=== PATIENT | female | born 1965 | race Caucasian/White ===

== ENCOUNTER → 2020-02-15 07:59 | Outpatient (CLI) | payer OTHER, SELFPAY ==
--- NOTE | 2020-02-15 | DI.ECHO.S_ITS ---
[facility]---------+ [facility] +---------+ : : [address] : [address] [address] : : : : [id number] : : : : Phone: [phone]+ Echocardiogram Report + + :Name: JUAN ZACARIAS Study Date: 02/15/2020 Height: 68 in : :[facility] Weight: 212 lb : : Gender: Female BSA: 2.1 m2 : :: 1965 Age: 54 yrs BP: 110/80 mmHg: :Reason For Study: AFIB : :Ordering Physician: Shaji Alvares : :Dai Performed By: Denisa Alejo : :Referring: SHAJI LALA : + + Interpretation Summary 1) Normal left ventricular thickness, size, wall motion, and systolic function (EF 60-65%). 2) Upper normal right ventricular size with normal function. 3) No significant valvular abnormalities. 4) No prior Echo available for comparison. Procedure: A two-dimensional transthoracic echocardiogram with color flow and Doppler was performed. The study quality was technically adequate. There is no prior echocardiogram noted for this patient. The patient was in normal sinus rhythm during the exam. The heart rate ranged between 60-75 bpm during the study. Left Ventricle: The left ventricle is normal in size and wall thickness. The ejection fraction is estimated to be 60-65%. Left ventricular systolic function is normal without focal wall motion abnormalities. Diastolic parameters suggest probable normal left ventricular diastolic function and normal filling pressures. Right Ventricle: The right ventricle is at the upper limits of normal in size. The right ventricular systolic function is normal. Atria: Both atria are normal in size. There is no Doppler evidence for an interatrial shunt. Mitral Valve: The mitral valve is normal in structure and function. There is trace mitral regurgitation. Aortic Valve: The aortic valve is trileaflet. The aortic valve opens well. There is no aortic valve stenosis. No aortic regurgitation is present. Tricuspid Valve: The tricuspid valve is normal in structure and function. There is a trace or physiologic amount of tricuspid regurgitation. Pulmonary artery pressures cannot be estimated because of the lack of a measurable TR jet velocity but the IVC suggests a CVP of around 3 mmHg. Pulmonic Valve: The pulmonic valve is normal in structure and function. There is no pulmonic valvular regurgitation. Great Vessels: The aortic root is normal size. The dimensions of the ascending aorta are normal. The IVC is of normal diameter and collapses greater than 50% with a sniff. This suggests a low right atrial pressure of 3 mm Hg. Pericardium/ Pleura There is no pericardial effusion. There is no pleural effusion. MMode/2D Measurements & Calculations LVIDd: 4.2 cm LVOT diam: 2.0 cm LVIDs: 2.6 cm Ao root diam: 2.7 cm FS: 37.2 % asc Aorta Diam: 2.9 cm EPSS: 0.10 cm Ao Arch Diam (Prox Trans): 2.5 cm IVSd: 0.89 cm LVPWd: 0.67 cm LV rivera. diameter/BSA (cm/m^2): 2.0 LV sys. diameter/BSA (cm/m^2): 1.3 LA A2 area: 20.1 cm2 RA long axis: 5.2 cm LA A4 area: 19.6 cm2 RA area: 18.0 cm2 LA length (vol): 5.5 cm RA vol: 52.5 ml LA vol: 61.3 ml RA : 25.1 ml/m2 LA vol index: 29.3 ml/m2 IVC diam: 2.0 cm RVD1 (basal): 4.1 cm TAPSE: 2.5 cm Doppler Measurements & Calculations Ao V2 max: 133.0 cm/sec LVOT Max Silvino: 110.8 cm/sec Ao V2 mean: 84.5 cm/sec LV V1 max P.9 mmHg Ao max P.1 mmHg LV V1 VTI: 26.5 cm Ao mean P.4 mmHg LJ(I,D): 2.6 cm2 Ao V2 VTI: 31.8 cm LJ(V,D): 2.6 cm2 sev ratio: 0.83 LJ indexed to BSA (cm^2/m^2): 1.2 MV E max silvino: 77.2 cm/sec PA V2 max: 88.3 cm/sec MV A max silvino: 56.9 cm/sec PA V2 mean: 61.2 cm/sec MV E/A: 1.4 PA mean P.7 mmHg Med Peak E' Silvino: 11.5 cm/sec E/E' med: 6.7 Lat Peak E' Silvino: 20.0 cm/sec E/E' lat: 3.9 E/e' average: 5.3 MV dec time: 0.24 sec SV(LVOT): 83.3 ml Reading Physician:02:22 PM
== END ==
PROVIDERS: PCP Naturopath; Referring Provider Internal Medicine Cardiovascular Disease; Visit Provider Internal Medicine Cardiovascular Disease
DX: I48.0 Paroxysmal atrial fibrillation (principal)
CPT/HCPCS: 93306